=== PATIENT | female | born 1945 | race Caucasian/White ===

== ENCOUNTER 2023-08-11 14:33 | Outpatient (CLI) | payer MEDICARE, BC, SELFPAY ==
--- NOTE | 2023-08-11 06:00 | DI.RAD_ITS ---
Exam(s) XR PAIN CLINIC LUMBAR SP 2V EXAM: XR PAIN CLINIC LUMBAR SP 2V CLINICAL HISTORY: DX: Lumbar spondylosis. TECHNIQUE: Fluoroscopy was provided for the referring physician for guidance with performing pain cl inic injection procedure. COMPARISON: No exams were available for comparison FINDINGS: Please see procedure note for details. Fluoro time: 24.8 seconds RADIATION DOSE DELIVERED: sourav Roth=6.83 mGy
[2023-08-11 15:01] VITALS: BP 138/74; PULSE 64; RESP 20; TEMP 37.2; O2SAT 97
--- NOTE | 2023-08-11 15:32 | PDOC.PAIN ---
Date of service: 08/11/23 Time of Service: 15:32 Pain Managment Procedure Note Procedure Note Procedure Note: PROCEDURE NOTE Left Lumbar Medial Branch Blocks Date of Service: August 11, 2023 Patient: Marcus Sofia Provider: Eduardo Rodriguez DO, MPH Marcus Sofia has been [facility] to [facility] for lumbar medial branch blocks. Pre-operative diagnosis: Lumbar Spondylosis without Myelopathy Post-operative diagnosis: Same Pre-procedure pain: VAS= 10/10 with lumbar extension COMMENTS: I previously evaluated her in the office. Dayana was interviewed and the medical records were reviewed. There were no medical, pharmacologic, radiographic or other structural contraindications to attempting fluoroscopically guided local anesthetic lumbar medial branch blocks. Risks and potential side effects were discussed. I also discussed the potential benefit(s) of the procedure with Marcus, and voiced concerns were addressed. After Marcus was completely informed about the procedure, the printed consent form was signed. A standard time-out procedure was performed. Marcus was placed in the prone position on the fluoroscopy table. Automated blood pressure cuff and pulse oximeter were applied. The skin entry points for approaching the anatomic target points of the segmental medial branches of left L3,L4,L5 were identified with fluoroscopy and marked. The skin at the target site area was thoroughly prepared with Chlorhexadine. The skin was then draped. Next, a 25 gauge 3.5 spinal needle was placed under fluoroscopic guidance down on to the target point (the articular pillar) for each respective segmental medial branch. Position was confirmed in A/P and lateral views. Aspiration revealed no blood or clear fluid. Next, 0.25ml of omnipaque 240 was injected at each level. No contrast following a vascular or neural pattern was visualized under continuous fluoroscopy. Next, 0.25 ml of preservative-free 0.5% bupivicaine was injected at each level. There was no unusual discomfort expressed by Marcus. The needles were withdrawn without difficulty. (49 mls of Omnipaque was wasted) Marcus was observed and was without hemodynamic, neurologic, or allergic reactions.? Fluoroscopic images were digitally archived. Provacative testing using the Modified Chaparro's facet loading test- Left side Directly before the block VAS (0-10) = 10/10 Five minutes after the block VAS (0-10) = 0/10 Percentage relief obtained with this diagnostic block 100% Any improved physical functioning directly after the blocks? Able to move her back in all directions with no pain Follow up plans and appointments were discussed with Marcus. Marcus was instructed to keep careful note of how the usual pain was modified by these injections. Specifically, to keep a pain diary for the next 4 hours using a numeric pain scale of 0-10 and report these results. Post procedure instruction was given as documented in the nursing documentation and having met discharge criteria, the patient was [facility]. Based on the medial branches blocked today, if they patient has adequate relief and we are able to proceed to radiofrequency ablation, the treatment should result in the denervation of the left L4-L5 and L5-S1 facet joints. We would expect to denervate a total of 2 facets during the radiofrequency ablation. COMMENTS: No apparent complications. Post-procedure pain: VAS= 0/10 Marcus will call back with 0-4 hour post-procedure pain scores. I personally performed the entire procedure. EDUARDO RODRIGUEZ DO, MPH ABPM&R-subspecialty board certification in Pain Medicine [facility] [facility]
[2023-08-11 15:33] VITALS: BP 162/88; PULSE 64; RESP 24; O2SAT 97
[2023-08-11] MEDS: Omnipaque 240 MG/ML 50 ML BTL IJ (15:35)
[2023-08-11] MEDS: Bupivacaine 0.5% Pres-Free 10 ML VIAL IJ (15:35)
[2023-08-11] MEDS: Nerve Block Tray 1 EACH MC (15:35)
== END 2023-08-11 14:34 | disposition home or self-care (01) ==
LOC: PC 14:33
PROVIDERS: PCP Legal Medicine; Visit Provider Preventive Medicine Occupational Medicine
DX: M47.816 Spondylosis without myelopathy or radiculopathy, lumbar region (principal)
CPT/HCPCS: 64493; 64494; 72100; J0665; Q9967

== ENCOUNTER 2023-09-08 13:09 | Outpatient (CLI) | payer MEDICARE, BC, SELFPAY ==
--- NOTE | 2023-09-08 06:00 | DI.RAD_ITS ---
Exam(s) XR PAIN CLINIC LUMBAR SP 2V EXAM: XR PAIN CLINIC LUMBAR SP 2V CLINICAL HISTORY: lumbar spondylosis. TECHNIQUE: Fluoroscopy was provided for the referring physician for guidance with performing pain cl inic injection procedure. COMPARISON: No exams were available for comparison FINDINGS: Please see procedure note for details. Fluoro time: 31.4 seconds RADIATION DOSE DELIVERED: sourav Roth=9.05 mGy
[2023-09-08 13:33] VITALS: BP 123/69; PULSE 82; RESP 20; TEMP 37.2; O2SAT 96
[2023-09-08 13:52] VITALS: PULSE 77
[2023-09-08 14:00] VITALS: PULSE 79; RESP 26; O2SAT 98
[2023-09-08 14:04] VITALS: BP 151/88; PULSE 75
--- NOTE | 2023-09-08 14:04 | PDOC.PAIN_ITS ---
Date of service: 09/08/23 Time of Service: 14:04 Pain Managment Procedure Note Procedure Note Procedure Note: PROCEDURE NOTE Left Lumbar Medial Branch Blocks Date of Service: September 08, 2023 Patient: Marcus Sofia Provider: Keith Rodriguez DO, MPH Marcus Joni Sofia has been referred to the [facility] for lumbar medial branch blocks. Pre-operative diagnosis: Lumbar Spondylosis without Myelopathy Post-operative diagnosis: Same Pre-procedure pain: VAS= 7/10 COMMENTS: She did very well with her first LMBBs on 08/11/23. Her pain has returned. Dayana was interviewed and the medical records were reviewed. There were no medical, pharmacologic, radiographic or other structural contraindications to attempting fluoroscopically guided local anesthetic lumbar medial branch blocks. Risks and potential side effects were discussed. I also discussed the potential benefit(s) of the procedure with Marcus, and voiced concerns were addressed. After Marcus was completely informed about the procedure, the printed consent form was signed. A standard time-out procedure was performed. Marcus was placed in the prone position on the fluoroscopy table. Automated blood pressure cuff and pulse oximeter were applied. The skin entry points for approaching the anatomic target points of the segmental medial branches of left L3,L4,L5 were identified with fluoroscopy and marked. The skin at the target site area was thoroughly prepared with Chlorhexadine. The skin was then draped. Next, a 25 gauge 3.5 spinal needle was placed under fluoroscopic guidance down on to the target point (the articular pillar) for each respective segmental medial branch. Position was confirmed in A/P and lateral views. Aspiration revealed no blood or clear fluid. Next, 0.25ml of omnipaque 240 was injected at each level. No contrast following a vascular or neural pattern was visualized under continuous fluoroscopy. Next, 0.25 ml of preservative-free 0.5% bupivicaine was injected at each level. There was no unusual discomfort expressed by Marcus. The needles were withdrawn without difficulty. (49 mls of Omnipaque was wasted) Marcus was observed and was without hemodynamic, neurologic, or allergic reactions.? Fluoroscopic images were digitally archived. Provacative testing using the Modified Chaparro's facet loading test- Left side Directly before the block VAS (0-10) = 7/10 Five minutes after the block VAS (0-10) = 1/10 Percentage relief obtained with this diagnostic block 90% Any improved physical functioning directly after the blocks? Able to move her back with very little pain. Follow up plans and appointments were discussed with Marcus. Marcus was instructed to keep careful note of how the usual pain was modified by these injections. Specifically, to keep a pain diary for the next 4 hours using a numeric pain scale of 0-10 and report these results. Post procedure instruction was given as documented in the nursing documentation and having met discharge criteria, the patient was [facility] from the [facility]. Based on the medial branches blocked today, if they patient has adequate relief and we are able to proceed to radiofrequency ablation, the treatment should result in the denervation of the left L4-L5 and L5-S1 facet joints. We would expect to denervate a total of 2 facets during the radiofrequency ablation. COMMENTS: No apparent complications. Post-procedure pain: VAS= 1/10. Marcus will call back with 0-4 hour post-procedure pain scores. I personally performed the entire procedure. KEITH RODRIGUEZ DO, MPH ABPM&R-subspecialty board certification in Pain Medicine [facility] [facility]
[2023-09-08] MEDS: Nerve Block Tray 1 EACH MC (14:11)
[2023-09-08] MEDS: Omnipaque 240 MG/ML 50 ML BTL IJ (14:11)
[2023-09-08] MEDS: Bupivacaine 0.5% Pres-Free 10 ML VIAL IJ (14:11)
== END 2023-09-08 13:10 | disposition home or self-care (01) ==
LOC: PC 13:09
PROVIDERS: PCP Legal Medicine; Visit Provider Preventive Medicine Occupational Medicine
DX: M54.50 Low back pain, unspecified (principal); M47.816 Spondylosis without myelopathy or radiculopathy, lumbar region
CPT/HCPCS: 64493; 64494; 72100; J0665; Q9967

== ENCOUNTER 2023-10-28 09:39 | Outpatient (CLI) | payer MEDICARE, BC, SELFPAY ==
[2023-10-28] MEDS: Midazolam 2 MG/2 ML VIAL IVP (10:55)
[2023-10-28] MEDS: fentaNYL 100 MCG/2 ML VIAL IVP ×2 (10:55→11:08)
[2023-10-28] MEDS: Lactated Ringers 500 ML 80 ML IV (11:09)
[2023-10-28 11:20] VITALS: BP 153/113; PULSE 63; RESP 17; O2SAT 96
--- NOTE | 2023-10-28 11:20 | DI.RAD_ITS ---
Exam(s) XR PAIN CLINIC LUMBAR SP 2V EXAM: XR PAIN CLINIC LUMBAR SP 2V CLINICAL HISTORY: Dx: Lumbar Spondylosis TECHNIQUE: 2D and realtime digital imaging was performed. CONTRAST MATERIAL: Refer to procedure report. COMPARISON: No exams were available for comparison FINDINGS: Fluoroscopy was provided for Dr. Rodriguez during the performance of a lumbar radiofrequency ablation. P lease refer to the procedure report for complete details. Ka,r=12.3 mGy IMPRESSION: RADIATION DOSE DELIVERED: 0.0 0.0 0
[2023-10-28 11:21] VITALS: PULSE 61; RESP 14; O2SAT 95
[2023-10-28 11:22] VITALS: BP 166/93; PULSE 62
[2023-10-28] MEDS: Lidocaine 2% Multi-Dose 20 ML VIAL IJ (11:30)
[2023-10-28] MEDS: Bupivacaine 0.5% Pres-Free 10 ML VIAL IJ (11:31)
[2023-10-28] MEDS: methylPREDNISolone ACETATE 40 MG/ML VIAL IJ (11:31)
[2023-10-28] MEDS: Nerve Block Tray 1 EACH MC (11:32)
--- NOTE | 2023-10-28 13:08 | PDOC.PAIN ---
Date of service: 10/28/23 Time of Service: 13:08 Pain Managment Procedure Note Procedure Note Procedure Note: PROCEDURE NOTE LEFT LUMBAR RADIOFREQUENCY ABLATION Date of Service: October 28, 2023 Patient:Marcus Garcia? Provider:? Eduardo Rodriguez DO, MPH Marcus Sofia has been [facility] to the [facility] Left Lumbar Radiofrequency Ablation with the Avanos Machine.? Pre Operative Diagnosis: Lumbosacral Spondylosis without Myelopathy Post Operative Diagnosis: Same Pre procedure pain; VAS= 8/10 Comments: She did very well with the LMBBs PROCEDURE: Radiofrequency Ablation of medial branches - left L3, L4, L5 and lateral branches of left S1. Marcus?was interviewed and the medical record was reviewed.? There were no medical, pharmacologic, radiographic or other structural contraindications to attempting fluoroscopically guided LEFT Lumbar Radiofrequency Ablation.?Risks and expected side effects as well as potential benefit of the procedure were reviewed with Marcus, and the patient's voiced concerns were addressed.? The printed consent form was signed.? Standard time-out procedure was performed. Marcus was brought into the fluoroscopy suite and positioned into the prone position on the fluoroscopy table and allowed to adjust to a position of comfort. A grounding pad was placed on the left abdomen. The sterile field was prepared using chlorhexidine preparation of the skin and sterile draping. Local anesthesia superficial and deep was provided by local infiltration of 2% lidocaine. A 17g 100 mm radiofrequency introducer needle was placed to the planned anatomic targets guided with intermittent fluoroscopy with a perpendicular approach to terminally place at the junction of the superior articular process and the transverse process of the left L4, L5, the base of the sacral ala on the left for the L5 medial branch nerve and the area between base of the sacral ala to the S1 foramen on the left. The stylets were removed and radiofrequency probes with a 4mm active tip were then inserted. Needle tip position of the probes was verified in the AP, oblique, and lateral views. At each site, the medial branch nerve was stimulated at 2 Hz to a maximum 1-2 volts determined to finalize safe needle and electrode placement. The patient was awake and responsive during this portion of the procedure. Each target was anesthetized with 1-2 mL of 2 % Lidocaine for anesthesia for lesioning and then each target was lesioned at 80 degrees Celsius for 2 minutes and 30 seconds. Tissue impedances were noted to be between 250 and 500 Ohms. Next I injected 1/4 cc of Depomedrol (40 mg/cc) followed by 1 cc of 0.5% Bupivacaine. There was no unusual discomfort expressed by Marcus. The needles were withdrawn without difficulty and bandages placed over the needle placement sites, the patient was observed and was without hemodynamic, neurologic, or allergic reactions. Fluoroscopic images were digitally archived. POST PROCEDURE EVALUATION: IMPRESSION: 1. Summary of procedure. Medication given is documented in the MAR. 2. Follow up plan: Marcus to contact [place] [facility] as needed.?This procedure may be repeated if the patient achieves at least 50% improvement in pain/function for at least 6 months. 3. Estimated Blood Loss: <5 mls 4. Fluoroscopy time: Documented in the EMR. Follow up plans and appointments were discussed with the Marcus. Post procedure instruction was given as documented in nursing documentation and having met discharge criteria, Marcus was discharged from the [facility]. COMMENTS: No apparent complications. Post-procedure pain: VAS= 0/10. I personally completed the entire procedure. EDUARDO RODRIGUEZ DO, MPH ABPM&R - Subspecialty board certification in Pain Medicine [facility] [facility]
== END 2023-10-28 09:40 | disposition home or self-care (01) ==
LOC: PC 09:39
PROVIDERS: PCP Legal Medicine; Visit Provider Preventive Medicine Occupational Medicine
DX: M54.50 Low back pain, unspecified (principal); M47.817 Spondylosis without myelopathy or radiculopathy, lumbosacral region
CPT/HCPCS: 64635; 64636; 72100; J0665; J1010; J2003; J2250; J3010

== ENCOUNTER 2024-03-22 09:08 | Outpatient (CLI) | payer MEDICARE, BC, SELFPAY ==
[2024-03-22 09:27] VITALS: BP 134/85; PULSE 71; RESP 18; TEMP 36.5; O2SAT 97
[2024-03-22 10:03] VITALS: PULSE 66; O2SAT 96
[2024-03-22 10:04] VITALS: BP 129/74; PULSE 64; O2SAT 95
[2024-03-22 10:10] VITALS: PULSE 66; O2SAT 97
--- NOTE | 2024-03-22 10:12 | DI.RAD_ITS ---
Exam(s) XR PAIN CLINIC LUMBAR SP 2V EXAM: XR PAIN CLINIC LUMBAR SP 2V CLINICAL HISTORY: Dx: Lumbar Radiculopathy TECHNIQUE: 2D and realtime digital imaging was performed. CONTRAST MATERIAL: Refer to procedure report. COMPARISON: No exams were available for comparison FINDINGS: Fluoroscopy was provided for Dr. Rodriguez during the performance of a lumbar epidural steroid injection. Please refer to the procedure report for complete details. Ka,r=6.93 mGy IMPRESSION: RADIATION DOSE DELIVERED: 0.0 0.0 0
[2024-03-22 10:13] VITALS: BP 154/68; PULSE 66
[2024-03-22] MEDS: methylPREDNISolone ACETATE 80 MG/ML VIAL IJ (10:17)
[2024-03-22] MEDS: Omnipaque 240 MG/ML 50 ML BTL IJ (10:17)
[2024-03-22] MEDS: Epidural Tray 1 EACH MC (10:17)
--- NOTE | 2024-03-22 10:17 | PDOC.PAIN_ITS ---
Date of service: 03/22/24 Time of Service: 10:17 Pain Managment Procedure Note Procedure Note Procedure Note: PROCEDURE NOTE LUMBAR EPIDURAL STEROID INJECTION Date of Service: March 22, 2024 Patient:Marcus Martinez? Provider: Eduardo Rodriguez DO, MPH Marcus Sofia has been referred to the [facility] for a lumbar epidural steroid injection. Pre-operative diagnosis: Lumbosacral Radiculopathy ICD-10 M54.16 Post-operative diagnosis: Same Pre-Procedure Pain: VAS= 10 /10 with walking Comments: She had >4 months of >50% pain relief with her last LESI. Marcus was interviewed and the medical record was reviewed.? There were no medical, pharmacologic, radiographic or other structural contraindications to attempting fluoroscopically guided Lumbar epidural steroid injection.? Risks, potential side effects, indications, and potential benefits of the procedure were reviewed with Marcus.? Questions and concerns were addressed.? After it was clear that Marcus was fully informed about the procedure, the printed consent form was signed by the patient and myself.? Marcus was placed in the prone position on the fluoroscopy table and automated blood pressure cuff and pulse oximeter applied. The skin entry point for entering/approaching the epidural space for the lumbar epidural steroid injection was marked. Following thorough chlorhexadine preparation of the skin and draping and 1% lidocaine infiltration of the skin entry point and subcutaneous tissues, an 18 gauge Touhy needle was placed and advanced under fluoroscopic guidance and with loss of resistance technique into the L5-S1 epidural space. Needle tip placement and depth were aided and confirmed by flu oroscopy. There was no paresthesia or return of blood or CSF through the needle. 1 mls of Omnipaque 240 was injected with clear epidural spread confirmed with fluoroscopy. 80 mg of Depo-Medrol was? injected. This was followed by 1 ml of preservative-free normal saline to flush the steroid out of the needle. There was no unusual discomfort expressed by Marcus. The needle was withdrawn without difficulty. (49 mls of Omnipaque was wasted) Marcus was observed and was without hemodynamic, neurologic, or allergic reactions.? Fluoroscopic images were digitally archived. Marcus's vital signs were stable throughout the procedure and were as recorded in nursing records. Follow up plans and appointments were discussed with Marcus. Post procedure instruction was given as documented in nursing records and having met discharge criteria Marcus was discharged from the [facility]. COMMENTS: No apparent complications. Post-procedure pain: VAS= 0/10 with walking. Marcus to contact [facility] as needed. If at least 50% improvement in pain and/or function for at least 3 months is achieved, this procedure can be repeated. I personally performed this entire procedure. EDUARDO RODRIGUEZ DO, MPH ABPMR-subspecialty board certification in Pain Medicine [facility]
== END 2024-03-22 09:09 | disposition home or self-care (01) ==
LOC: PC 09:08
PROVIDERS: PCP Legal Medicine; Visit Provider Preventive Medicine Occupational Medicine
DX: M54.50 Low back pain, unspecified (principal); M54.16 Radiculopathy, lumbar region
CPT/HCPCS: 62323; 72100; J1010; Q9967